=== PATIENT | male | born 1995 | race Caucasian/White ===

== ENCOUNTER 2017-08-10 20:17 | Emergency (ER) | payer MEDICAID, OTHER ==
[2017-08-10 20:29] VITALS: BP 130/83; PULSE 108; RESP 16; TEMP 98; O2SAT 97
[2017-08-10 22:12] LABS: BASOPHIL # 0.1 TH/MM3 (0-0.2); BASOPHIL % 1.1 % (0.0-2.0); EOSINOPHIL # 0.3 TH/MM3 (0-0.4); EOSINOPHIL % 3.7 % (0.0-4.0); HEMO FLAGS DIFF FINAL; LYMPHOCYTE # 3.5 TH/MM3 (1.0-4.8); MEAN CELL VOLUME 89.3 FL (80.0-100.0); MEAN CORPUSCULAR HEMOGLOBIN 30.8 PG (27.0-34.0); MEAN CORPUSCULAR HGB CONC 34.5 % (32.0-36.0); MONO % 7.4 % (0.0-8.0); NEUT % 46.8 % (16.0-70.0); PLATELET COUNT 284 TH/MM3 (150-450); RED BLOOD COUNT 4.48 MIL/MM3 (4.50-5.90); WHITE BLOOD COUNT 8.4 TH/MM3 (4.0-11.0)
[2017-08-10 22:31] LABS: ANION GAP 9 MEQ/L (5-15); AST (GOT) 15 U/L (15-37); BICARBONATE 27.5 MEQ/L (21.0-32.0); BLOOD UREA NITROGEN 14 MG/DL (7-18); CHLORIDE 104 MEQ/L (98-107); GLOMERULAR FILTRATION RATE 96 ML/MIN (>89); POTASSIUM 3.4 MEQ/L (3.5-5.1); SODIUM (NA) 140 MEQ/L (136-145)
[2017-08-10 22:32] LABS: ALT (GPT) 26 U/L (12-78)
[2017-08-10 22:34] LABS: ALKALINE PHOSPHATASE 50 U/L (45-117); TOTAL BILIRUBIN ADULT 0.3 MG/DL (0.2-1.0)
[2017-08-10 22:41] LABS: ALCOHOL 102 MG/DL (0-5)
[2017-08-10] MEDS ORDERED: TETANUS/DIPHTHERIA TOXOID ADULT 0.5 ML VIAL IM ONE (22:45)
[2017-08-10] MEDS ORDERED: diphenhydrAMINE HCL 50 MG CAP PO ONE (22:45)
--- NOTE | 2017-08-10 22:47 | PD ---
HPI Chief Complaint: Psychiatric Symptoms Time Seen by Provider: 22:43 Travel History International Travel<30 days: No Contact w/Intl Traveler<30days: No Traveled to known affect area: No History of Present Illness HPI 23-year-old male presents to the ED under Hollis act for psychiatric evaluation. On arrival the patient states he got in a fight with his girlfriend today. He states that he was angry and made superficial lacerations of the left wrist with a steak knife. On presentation he denies suicidal ideation, stating that he cut himself in an attempt to avoid directing his anger at anyone else. He states that he drank a sixpack of beer today. He denies any illicit drug use. Denies psychiatric history. He complains of congestion secondary to seasonal allergies and requests antihistamine. No other somatic complaints. Patient is unsure of his last tetanus immunization. COUNT INCLUDES [facility] Past Medical History Anxiety: Yes Depression: Yes Past Surgical History Tonsillectomy: Yes Social History Alcohol Use: Yes (OCC.) Tobacco Use: Yes (VAPE PEN, PREVIOUS CHEWING TOBACCO) Substance Use: No Allergies-Medications (Allergen,Severity, Reaction): Coded Allergies: No Known Allergies (Unverified , 08/10/17) Reported Meds & Prescriptions Reported Meds & Active Scripts Active No Active Prescriptions or Reported Medications Review of Systems Except as stated in HPI: all other systems reviewed are Neg Physical Exam Narrative GENERAL: Well-nourished, well-developed white male in no acute distress. PSYCHIATRIC: No delusional thought processes. Cooperative, appropriately interactive. SKIN: Focused skin assessment warm/dry. Multiple linear superficial lacerations of the left wrist. No active bleeding. HEAD: Normocephalic. EYES: No scleral icterus. No injection or drainage. NECK: Supple, trachea midline. No JVD or lymphadenopathy. CARDIOVASCULAR: Regular rate and rhythm without murmurs, gallops, or rubs. RESPIRATORY: Breath sounds equal bilaterally. No accessory muscle use. GASTROINTESTINAL: Abdomen soft, non-tender, nondistended. MUSCULOSKELETAL: No cyanosis, or edema. BACK: Nontender without obvious deformity. No CVA tenderness. Data Data Last Documented VS Vital Signs Date Time Temp Pulse Resp B/P (MAP) Pulse Ox O2 Delivery O2 Flow Rate FiO2 08/10/17 20:29 98.0 108 16 130/83 (99) 97 Orders Orders Complete Blood Count With Diff (08/10/17 20:39) Comprehensive Metabolic Panel (08/10/17 20:39) Urinalysis - C+S If Indicated (08/10/17 20:39) Psych Screen (08/10/17 20:39) Drug Screen, Random Urine (08/10/17 20:39) Alcohol (Ethanol) (08/10/17 20:39) Tetanus/Diphtheria Tox Adult (Tetanus/Di (08/10/17 22:45) Diphenhydramine (Benadryl) (08/10/17 22:45) Labs Laboratory Tests Test 08/10/17 21:35 White Blood Count 8.4 TH/MM3 Red Blood Count 4.48 MIL/MM3 Hemoglobin 13.8 GM/DL Hematocrit 40.0 % Mean Corpuscular Volume 89.3 FL Mean Corpuscular Hemoglobin 30.8 PG Mean Corpuscular Hemoglobin Concent 34.5 % Red Cell Distribution Width 13.0 % Platelet Count 284 TH/MM3 Mean Platelet Volume 7.5 FL Neutrophils (%) (Auto) 46.8 % Lymphocytes (%) (Auto) 41.0 % Monocytes (%) (Auto) 7.4 % Eosinophils (%) (Auto) 3.7 % Basophils (%) (Auto) 1.1 % Neutrophils # (Auto) 4.0 TH/MM3 Lymphocytes # (Auto) 3.5 TH/MM3 Monocytes # (Auto) 0.6 TH/MM3 Eosinophils # (Auto) 0.3 TH/MM3 Basophils # (Auto) 0.1 TH/MM3 CBC Comment DIFF FINAL Differential Comment Blood Urea Nitrogen 14 MG/DL Creatinine 0.97 MG/DL Random Glucose 79 MG/DL Total Protein 7.6 GM/DL Albumin 4.2 GM/DL Calcium Level 8.7 MG/DL Alkaline Phosphatase 50 U/L Aspartate Amino Transf (AST/SGOT) 15 U/L Alanine Aminotransferase (ALT/SGPT) 26 U/L Total Bilirubin 0.3 MG/DL Sodium Level 140 MEQ/L Potassium Level 3.4 MEQ/L Chloride Level 104 MEQ/L Carbon Dioxide Level 27.5 MEQ/L Anion Gap 9 MEQ/L Estimat Glomerular Filtration Rate 96 ML/MIN Ethyl Alcohol Level 102 MG/DL MDM Medical Decision Making Medical Screen Exam Complete: Yes Emergency Medical Condition: Yes Differential Diagnosis Laceration versus for tetanus immunization versus Adjustment disorder versus anxiety versus bipolar versus depression versus dementia versus electrolyte disorder versus malingering versus mood disorder versus ODD versus psychosis versus PTSD versus schizophrenia versus schizoaffective disorder versus substance-induced mood disorder versus other Narrative Course 23-year-old male presents to the ED under Hollis act for psychiatric evaluation. On arrival the patient states he got in a fight with his girlfriend today. He states that he was angry and made superficial lacerations of the left wrist. Denies suicidal ideation. He states that he cut himself in an attempt to avoid directing his anger at anyone else. He states that he drank a sixpack of beer today. He denies any illicit drug use. Denies psychiatric history. He complains of congestion secondary to seasonal allergies and requests antihistamine. No other somatic complaints. Vitals reviewed. Physical exam reveals a nontoxic-appearing white male in no acute distress. There are a few linear, superficial lacerations on the left wrist with exams otherwise unremarkable. Laceration repair was performed. Please see my procedure note for details. Patient's tetanus immunization was updated. He was administered Benadryl. Alcohol 102. No concerning abnormalities of the lab work. He is cleared for psychiatric evaluation Procedures Procedure Narrative LACERATION LOCATION: Left anterior wrist LENGTH: 2 cm 2 NUMBER OF STITCHES/COLEEN: 0, closed with Steri-Strips REPAIR: The wound was copiously irrigated and explored without evidence of foreign body, tendon injury or neurovascular injury. The wound was closed using Steri-Strips. This was a single layer repair. The patient was advised to keep the wound clean and dry. Patient tolerated the procedure well. Diagnosis Primary Impression: Medical clearance for psychiatric admission Additional Impression: Laceration of arm, left, multiple sites Qualified Codes: S41.112A - Laceration without foreign body of left upper arm , initial encounter Scripts No Active Prescriptions or Reported Meds Laverne Tillman Aug 10, 2017 22:47
[2017-08-11 00:56] VITALS: BP 113/56; PULSE 77; RESP 18; O2SAT 99
[2017-08-11 04:21] VITALS: BP 102/57; PULSE 65; RESP 14; O2SAT 97
[2017-08-11 07:15] VITALS: BP 133/59; PULSE 67; RESP 17; O2SAT 99
[2017-08-11 09:50] LABS: BLOOD, URINE NEG (NEG); COMMENT (UR) CULT NOT INDICATED; CULTURE IF INDICATED CULT NOT INDICATED; GLUCOSE,URINE NEG (NEG); KETONE, URINE NEG (NEG); MUCUS URINE MANY /lpf (OCC); NITRITE,URINE NEG (NEG); URINE COLOR YELLOW (YELLW/STRAW)
[2017-08-11 11:51] VITALS: BP 132/58; PULSE 84; RESP 18; TEMP 97.7; O2SAT 98
--- NOTE | 2017-08-11 16:56 | PD ---
History of Present Illness Chief Complaint: Psychiatric Symptoms Time Seen by Provider: 16:30 Travel History International Travel<30 Days: No Contact w/Intl Traveler<30days: No Known affected area: No Legal Status Legal Status: Hollis Act Hollis Act Signed By: Dilip Nickerson Hollis Act Comment: BA signed by: JAROD NATH Badge#[id number], Case#[id number] History of Present Illness: History of Present Illness HPI 24-year-old male with no previous psychiatric history who presents to the emergency department under a Hollis act initiated by law enforcement. The police were called to his house by his girlfriend. The report alleges that the patient was involved in an argument with his girlfriend regarding his drinking alcohol. During the argument the patient picked up a knife and self-inflicted superficial lacerations to his left wrist. He denies that this was done with the intention of killing himself but rather as a way to stop the argument.. He also reports that he has a history of self self injury since age 15. The patient was allowed to sober up clinically and he presented no suicidality and no behavioral concerns. Electronic medical record reviewed. No previous contact with [facility] psychiatry. Current toxicology is positive for cocaine and current blood alcohol level 102. The patient continues to deny any suicidal or homicidal ideation. He continues to reported that he cut himself in order to stop the argument and because he was angry. There is no psychosis, no rina or hypomania. No objective clinical symptom of depression noted. He is requesting to be discharge and has made plans to go and stay with his mother. [facility] Past Medical History Anxiety: Yes Depression: Yes Past Surgical History Tonsillectomy: Yes Psychiatric History Psychiatric History Hx Psychiatric Treatment: Denies previous psych hx History of Inpatient Treatment: No Guns or firearms in home: No Social History Single male who lives with his girlfriend. He has been living together for the past 3 years. He is employed. No reported history of abuse. Has been arrested in the past for having an open container. Hx Alcohol Use: Yes (OCC.) Hx Tobacco Use: Yes (VAPE PEN, PREVIOUS CHEWING TOBACCO) Hx Substance Use: Yes Substance Use Type: Benzos (Valium,Xanax), Synth Opiates-Pain Pills Other Substances Used: Had to go to drug court had to complete [facility] drug court program Hx of Substance Use Treatment: No Allergies-Medications (Allergen,Severity, Reaction): Coded Allergies: No Known Allergies (Unverified , 08/10/17) Reported Meds & Prescriptions Reported Meds & Active Scripts Active No Active Prescriptions or Reported Medications Review of Systems Except as stated in HPI: all other systems reviewed are Neg Mental Status Examination Appearance: Appropriate (dressed in [facility]) Consciousness: Alert Orientation: x4 Motor Activity: Normal gait Speech: Unremarkable Language: Adequate Fund of Knowledge: Adequate Attention and Concentration: Adequate Memory: Unremarkable Mood: Appropriate Affect: Appropriate Thought Process & Associations: Intact, Logical, Goal directed Thought Content: Appropriate Hallucination Type: None Delusion Type: None Suicidal Ideation: No Suicidal Plan: No Suicidal Intention: No Homicidal Ideation: No Homicidal Plan: No Homicidal Intention: No Insight: Fair Judgment: Impulsive MDM Medical Decision Making Medical Record Reviewed: Yes Assessment/Plan 22-year-old male with no previous psychiatric history who in context of being involved in an argument with his girlfriend over his use of alcohol and while under the influence of alcohol self-inflicted lacerations to his left wrist. The patient denies that this was a suicidal ideation but rather a way of having his girlfriend stop arguing with him. During the time that he was under monitoring in [facility] he presented no suicidality and no behavioral dysregulation. He is cognitively intact. There is no evidence of an unstable mental illness as defined under the Hollis act. The patient is provided psychoeducation. The Hollis act is lifted. Psychiatrically clear for discharge. Orders Orders Complete Blood Count With Diff (08/10/17 20:39) Comprehensive Metabolic Panel (08/10/17 20:39) Urinalysis - C+S If Indicated (08/10/17 20:39) Psych Screen (08/10/17 20:39) Drug Screen, Random Urine (08/10/17 20:39) Alcohol (Ethanol) (08/10/17 20:39) Tetanus/Diphtheria Tox Adult (Tetanus/Di (08/10/17 22:45) Diphenhydramine (Benadryl) (08/10/17 22:45) Diet Regular Basic (08/11/17 Dinner) Results Vital Signs Date Time Temp Pulse Resp B/P (MAP) Pulse Ox O2 Delivery O2 Flow Rate FiO2 08/11/17 11:51 97.7 84 18 132/58 (82) 98 Room Air 08/11/17 07:15 67 17 133/59 (83) 99 Room Air 08/11/17 04:21 65 14 102/57 (72) 97 Room Air 08/11/17 00:56 77 18 113/56 (75) 99 Room Air 08/10/17 20:29 98.0 108 16 130/83 (99) 97 Laboratory Tests Test 08/10/17 21:35 08/11/17 09:10 White Blood Count 8.4 Red Blood Count 4.48 Hemoglobin 13.8 Hematocrit 40.0 Mean Corpuscular Volume 89.3 Mean Corpuscular Hemoglobin 30.8 Mean Corpuscular Hemoglobin Concent 34.5 Red Cell Distribution Width 13.0 Platelet Count 284 Mean Platelet Volume 7.5 Neutrophils (%) (Auto) 46.8 Lymphocytes (%) (Auto) 41.0 Monocytes (%) (Auto) 7.4 Eosinophils (%) (Auto) 3.7 Basophils (%) (Auto) 1.1 Neutrophils # (Auto) 4.0 Lymphocytes # (Auto) 3.5 Monocytes # (Auto) 0.6 Eosinophils # (Auto) 0.3 Basophils # (Auto) 0.1 CBC Comment DIFF FINAL Differential Comment Blood Urea Nitrogen 14 Creatinine 0.97 Random Glucose 79 Total Protein 7.6 Albumin 4.2 Calcium Level 8.7 Alkaline Phosphatase 50 Aspartate Amino Transf (AST/SGOT) 15 Alanine Aminotransferase (ALT/SGPT) 26 Total Bilirubin 0.3 Sodium Level 140 Potassium Level 3.4 Chloride Level 104 Carbon Dioxide Level 27.5 Anion Gap 9 Estimat Glomerular Filtration Rate 96 Ethyl Alcohol Level 102 Urine Color YELLOW Urine Turbidity CLEAR Urine pH 6.0 Urine Specific [place] 1.023 Urine Protein TRACE Urine Glucose (UA) NEG Urine Ketones NEG Urine Occult Blood NEG Urine Nitrite NEG Urine Bilirubin NEG Urine Urobilinogen LESS THAN 2.0 Urine Leukocyte Esterase NEG Urine RBC 1 Urine WBC 3 Urine Mucus MANY Microscopic Urinalysis Comment CULT NOT INDICATED Urine Opiates Screen NEG Urine Barbiturates Screen NEG Urine Amphetamines Screen NEG Urine Benzodiazepines Screen NEG Urine Cocaine Screen POS Urine Cannabinoids Screen NEG Diagnosis Primary Impression: Alcohol abuse Additional Impression: Cocaine abuse Psychiatrically Cleared: Yes Med/ Other Pt Specific Info: No Meds Exist/No RX given Prescriptions No Active Prescriptions or Reported Meds Disposition: 01 DISCHARGE HOME Condition: Stable Problem Qualifiers Monica Duke [facility] Aug 11, 2017 16:56
--- NOTE | 2017-08-11 17:12 | PD ---
Physical Exam Time Seen by Provider: 17:10 MARIA ISABEL James has evaluated the patient, lives in [facility] and cleared the patient for discharge. Data Data Last Documented VS Vital Signs Date Time Temp Pulse Resp B/P (MAP) Pulse Ox O2 Delivery O2 Flow Rate FiO2 08/11/17 11:51 97.7 84 18 132/58 (82) 98 Room Air Orders Orders Complete Blood Count With Diff (08/10/17 20:39) Comprehensive Metabolic Panel (08/10/17 20:39) Urinalysis - C+S If Indicated (08/10/17 20:39) Psych Screen (08/10/17 20:39) Drug Screen, Random Urine (08/10/17 20:39) Alcohol (Ethanol) (08/10/17 20:39) Tetanus/Diphtheria Tox Adult (Tetanus/Di (08/10/17 22:45) Diphenhydramine (Benadryl) (08/10/17 22:45) Diet Regular Basic (08/11/17 Dinner) Labs Laboratory Tests Test 08/10/17 21:35 08/11/17 09:10 White Blood Count 8.4 TH/MM3 Red Blood Count 4.48 MIL/MM3 Hemoglobin 13.8 GM/DL Hematocrit 40.0 % Mean Corpuscular Volume 89.3 FL Mean Corpuscular Hemoglobin 30.8 PG Mean Corpuscular Hemoglobin Concent 34.5 % Red Cell Distribution Width 13.0 % Platelet Count 284 TH/MM3 Mean Platelet Volume 7.5 FL Neutrophils (%) (Auto) 46.8 % Lymphocytes (%) (Auto) 41.0 % Monocytes (%) (Auto) 7.4 % Eosinophils (%) (Auto) 3.7 % Basophils (%) (Auto) 1.1 % Neutrophils # (Auto) 4.0 TH/MM3 Lymphocytes # (Auto) 3.5 TH/MM3 Monocytes # (Auto) 0.6 TH/MM3 Eosinophils # (Auto) 0.3 TH/MM3 Basophils # (Auto) 0.1 TH/MM3 CBC Comment DIFF FINAL Differential Comment Blood Urea Nitrogen 14 MG/DL Creatinine 0.97 MG/DL Random Glucose 79 MG/DL Total Protein 7.6 GM/DL Albumin 4.2 GM/DL Calcium Level 8.7 MG/DL Alkaline Phosphatase 50 U/L Aspartate Amino Transf (AST/SGOT) 15 U/L Alanine Aminotransferase (ALT/SGPT) 26 U/L Total Bilirubin 0.3 MG/DL Sodium Level 140 MEQ/L Potassium Level 3.4 MEQ/L Chloride Level 104 MEQ/L Carbon Dioxide Level 27.5 MEQ/L Anion Gap 9 MEQ/L Estimat Glomerular Filtration Rate 96 ML/MIN Ethyl Alcohol Level 102 MG/DL Urine Color YELLOW Urine Turbidity CLEAR Urine pH 6.0 Urine Specific [place] 1.023 Urine Protein TRACE mg/dL Urine Glucose (UA) NEG mg/dL Urine Ketones NEG mg/dL Urine Occult Blood NEG Urine Nitrite NEG Urine Bilirubin NEG Urine Urobilinogen LESS THAN 2.0 MG/DL Urine Leukocyte Esterase NEG Urine RBC 1 /hpf Urine WBC 3 /hpf Urine Mucus MANY /lpf Microscopic Urinalysis Comment CULT NOT INDICATED Urine Opiates Screen NEG Urine Barbiturates Screen NEG Urine Amphetamines Screen NEG Urine Benzodiazepines Screen NEG Urine Cocaine Screen POS Urine Cannabinoids Screen NEG MDM Supervised Visit with [facility]: No Narrative Course MARIA ISABEL Anderson has evaluated the patient, lives in [facility] and cleared the patient for discharge. Patient contracts safety. Denies suicidal or homicidal ideations. Patient will be provided community resource packet to [facility] for follow-up. Has friends and family for support. Patient was medically cleared by alternate provider prior to psych screening. Patient has been evaluated by psychiatry and and is now cleared for discharge. Diagnosis Primary Impression: Alcohol abuse Additional Impression: Cocaine abuse Referrals: [facility] (Out patient) [facility] Primary Care Physician Psychiatrist Marti [facility] Patient Instructions: Abuse of Alcohol (ED), Acute Wound Care (DC), Alcohol Intoxication (ED), Cocaine Abuse (ED), General Instructions, Steristrips (ED) Additional Instruction: Contract safety to your self and others Follow-up with psychiatry Follow-up with primary care provider Follow-up with [facility] Return to the emergency department immediately with worsening of symptoms Med/Other Pt SpecificInfo: No Change to Meds, No Meds Exist/No RX given Scripts No Active Prescriptions or Reported Meds Disposition: 01 DISCHARGE HOME Condition: Stable Ericka Zhang Aug 11, 2017 17:12
[2017-08-11 18:10] VITALS: BP 132/58; PULSE 84; RESP 18; O2SAT 98
== END 2017-08-11 18:15 | disposition home or self-care (01) ==
LOC: NEDAMB 20:17 → NEPJ 08-11 18:15
DX: S41.112A Laceration without foreign body of left upper arm, initial encounter (principal); F14.10 Cocaine abuse, uncomplicated; F10.10 Alcohol abuse, uncomplicated; Y90.7 Blood alcohol level of 200-239 mg/100 ml; X78.1XXA Intentional self-harm by knife, initial encounter; Z23 Encounter for immunization; Z72.0 Tobacco use
CPT/HCPCS: 80053; 80307; 81001; 85025; 90471; 90714; 99284; Q0163; 12001